=== PATIENT | female | born 1955 | race Caucasian/White ===

== ENCOUNTER → 2020-02-05 | Outpatient (CLI) | payer MEDICARE ==
[~2020-02-05] MED LIST: ASPIRIN81 MG PO; ATORVASTATIN CA20 MG PO; BRILINTA90 MG PO; GABAPENTIN100 MG PO; HUMULIN R100 UNIT/2 SQ; LISINOPRIL10 MG PO; METFORMIN HCL500 MG PO; NORCO 7.5-3251 EACH PO; NOVOLIN N100 UNIT/4 SQ; SEIZURE MED PO
--- NOTE | 2020-02-05 12:03 | Diagnostic Imaging Report ---
EXAMINATION: SPINE CERVICAL AP LAT FLEX EXT INDICATION: Postoperative COMPARISON: Radiograph of 01/03/2020 FINDINGS: AP and lateral radiographs of the cervical spine with flexion and extension views demonstrate postoperative findings of anterior cervical discectomy and fusion at C5-6. Unchanged alignment with straightening of the normal cervical lordosis. There is reversal of lordosis on flexion views alignment remains essentially unchanged. Prevertebral soft tissues are normal in thickness. IMPRESSION: Unchanged alignment status post anterior cervical discectomy and fusion at C5-6. Signed by: Leonel Quesada MD on 02/05/2020 12:00 PM
== END ==
LOC: RAD 11:22
PROVIDERS: ATTEND Neurological Surgery
DX: M50.20 Other cervical disc displacement, unspecified cervical region (principal); M43.22 Fusion of spine, cervical region
CPT/HCPCS: 72050